=== PATIENT | male | born 1960 | race Caucasian/White ===

== ENCOUNTER → 2019-05-20 | Outpatient (CLI) | payer BC, OTHER ==
[2019-05-20 13:18] LABS: BASOPHILS ABSOLUTE AUTO 0.02 K/mm3 (0.00-0.23); BASOPHILS PERCENT AUTO 0 % (0-2); EOSINOPHILS ABSOLUTE AUTO 0.01 K/mm3 (0.00-0.68); EOSINOPHILS PERCENT AUTO 0 % (0-6); Hematocrit 46.2 % (37.0-53.0); Hemoglobin 15.7 g/dL (13.5-17.5); IMMATURE GRAN ABSOLUTE AUTO 0.03 K/mm3 (0.00-0.10); IMMATURE GRAN PERCENT AUTO 0 % (0-1); LYMPHOCYTES ABSOLUTE AUTO 1.61 K/mm3 (0.84-5.20); LYMPHOCYTES PERCENT AUTO 22 % (21-46); MONOCYTES ABSOLUTE AUTO 0.41 K/mm3 (0.16-1.47); MONOCYTES PERCENT AUTO 6 % (4-13); Mean Corpuscular HGB 30.7 pg (26.0-34.0); Mean Corpuscular Volume 90 fL (80-100); Mean Platelet Volume 9.7 fL (9.1-12.4); NEUTROPHILS ABSOLUTE AUTO 5.15 K/mm3 (1.96-9.15); NEUTROPHILS PERCENT AUTO 71 % (41-73); Platelet Count 232 K/mm3 (150-400); RDW Coefficient Variation 12.8 % (11.7-14.2); RDW Standard Deviation 41.9 fL (35.1-46.3); Red Blood Cell Count 5.12 M/mm3 (4.30-5.90); White Blood Cell Count 7.23 K/mm3 (4.00-11.30)
[2019-05-20 13:30] LABS: Alanine Aminotransfer (ALT/SGP 34 U/L (12-78); Albumin, Blood 4.3 g/dL (3.4-5.0); Albumin/Globulin Ratio 1.3 (0.8-1.8); Alk Phos 54 U/L (40-126); Anion Gap 8 mmol/L (6-16); Aspartate Aminotrans (AST/SGOT 21 U/L (12-37); Bilirubin, Total 0.9 mg/dL (0.1-1.0); Blood Urea Nitrogen 17 mg/dL (8-24); Bun/Creatinine Ratio 14.7 (12.0-20.0); CO2, Blood 29 mmol/L (21-32); Calcium, Blood 9.1 mg/dL (8.5-10.1); Chloride, Blood 104 mmol/L (98-108); Creatinine, Blood 1.16 mg/dL (0.60-1.20); Globulin, Blood 3.2 g/dL (2.2-4.0); Glomerular Filtration Rate >60 (60-); Glucose, Blood 149 mg/dL (70-99); Potassium, Blood 4.1 mmol/L (3.5-5.5); Sodium, Blood 141 mmol/L (136-145); Total Protein, Blood 7.5 g/dL (6.4-8.2)
[2019-05-20 13:40] LABS: Troponin I <0.017 ng/mL (0.000-0.040)
== END | disposition home or self-care (01) ==
LOC: LAB SHORT 13:14 → LAB EV 13:14
PROVIDERS: Physician Assistant Medical
DX: R07.9 Chest pain, unspecified (principal)
CPT/HCPCS: 80053; 83690; 84484; 85025

== ENCOUNTER 2019-08-07 06:57 | Day surgery (SDC) | payer BC, OTHER ==
[~2019-08-07] VITALS: Ht 188 cm; Wt 97.0 kg
[2019-08-07] MEDS ORDERED: SUCR1 PO (07:30)
[2019-08-07] MEDS ORDERED: OMEPRAZOLE20 MG PO (07:30)
[2019-08-07] MEDS ORDERED: ASPI81CH PO (07:32)
[2019-08-07] MEDS ORDERED: ATOR10 PO (07:33)
--- NOTE | 2019-08-07 12:06 | NUR ---
DISCHARGE GONE OVER WITH PT, BOTH PT AND VERBALIZED UNDERSTANDING OF DISCHARGE INSTRUCTIONS. CLOTH DOT PLACED TO RADIAL SITE, NO ACTIVE BLEEDING NOTED. ARM BOARD PLACED RIGHT FOREARM. SALINE LOCK OUT WITH CATHETER INTACT. PT TO PRIVATE VEHICLE PER W/C EITH ASSIST OF 1 STAFF.
== END 2019-08-07 12:33 | disposition home or self-care (01) ==
LOC: MHTC 06:57
PROC: 4A023N7 Measurement of Cardiac Sampling and Pressure, Left Heart, Percutaneous Approach (ICD-10-PCS; principal; 2019-08-07)
PROC: B2111ZZ Fluoroscopy of Multiple Coronary Arteries using Low Osmolar Contrast (ICD-10-PCS; principal; 2019-08-07)
DX: R07.9 Chest pain, unspecified (principal); I10 Essential (primary) hypertension; I25.10 Atherosclerotic heart disease of native coronary artery without angina pectoris; E78.00 Pure hypercholesterolemia, unspecified; E78.5 Hyperlipidemia, unspecified; Z79.82 Long term (current) use of aspirin; Z79.899 Other long term (current) drug therapy; Z87.891 Personal history of nicotine dependence
CPT/HCPCS: 93458; 99152; 99153; C1769; C1894; J1644; J2250; J3010; J7030; Q9967

== ENCOUNTER 2022-08-07 11:07 | Day surgery (SDC) | payer BC, OTHER ==
[~2022-08-07] VITALS: Ht 182.9 cm; Wt 93.1 kg
[~2022-08-07 11:07] MED LIST: ASPI81CH PO; ATOR10 PO; OMEPRAZOLE20 MG PO; SUCR1 PO
[2022-08-07] MEDS ORDERED: TAMS.4ER (11:57)
--- NOTE | 2022-08-07 12:56 | NUR ---
08/07/22 1256 Aleksandr Mayo ROPIVACAINE 0.5% 30 MLS MIXED & VERIFIED W/ EPI 0.15 ML (1MG/ML) PER ORDER TO MAKE ROPIVACAINE 0.5% 1:200,000 FOR INJECTION AT OPSITE BY DR WOLFE. 20 MLS OF LOCAL INJECTED AT OPSITE BY DR WOLFE.
== END 2022-08-07 14:00 | disposition home or self-care (01) ==
LOC: ORSCSDS 11:07
PROVIDERS: Podiatrist Foot & Ankle Surgery
PROC: 0SGP04Z Fusion of Right Toe Phalangeal Joint with Internal Fixation Device, Open Approach (ICD-10-PCS; principal; 2022-08-07 12:30)
DX: M20.41 Other hammer toe(s) (acquired), right foot (principal); M79.671 Pain in right foot; Z87.891 Personal history of nicotine dependence; Z79.899 Other long term (current) drug therapy
CPT/HCPCS: C1713; J0171; J0690; J1100; J2250; J2405; J2704; J2795; J3010

== ENCOUNTER 2022-10-06 10:44 | Day surgery (SDC) | payer BC, OTHER ==
[~2022-10-06] VITALS: Ht 182.9 cm; Wt 92.9 kg
[~2022-10-06 10:44] MED LIST changes: +TAMS.4ER
[2022-10-06] MEDS ORDERED: KERENDIA10 MG (11:01)
== END 2022-10-06 14:15 | disposition home or self-care (01) ==
LOC: ORSCSDS 10:44
PROVIDERS: Internal Medicine Gastroenterology
PROC: 0DBN8ZX Excision of Sigmoid Colon, Via Natural or Artificial Opening Endoscopic, Diagnostic (ICD-10-PCS; principal; 2022-10-06 12:00)
PROC: 0DBP8ZX Excision of Rectum, Via Natural or Artificial Opening Endoscopic, Diagnostic (ICD-10-PCS; principal; 2022-10-06 12:00)
PROC: 0DBK8ZX Excision of Ascending Colon, Via Natural or Artificial Opening Endoscopic, Diagnostic (ICD-10-PCS; principal; 2022-10-06 12:00)
PROC: 0DBM8ZX Excision of Descending Colon, Via Natural or Artificial Opening Endoscopic, Diagnostic (ICD-10-PCS; principal; 2022-10-06 12:00)
PROC: 0DBL8ZX Excision of Transverse Colon, Via Natural or Artificial Opening Endoscopic, Diagnostic (ICD-10-PCS; principal; 2022-10-06 12:00)
DX: Z12.11 Encounter for screening for malignant neoplasm of colon (principal); Z86.010 Personal history of colon polyps; D12.5 Benign neoplasm of sigmoid colon; D12.3 Benign neoplasm of transverse colon; D12.2 Benign neoplasm of ascending colon; D12.4 Benign neoplasm of descending colon; K62.1 Rectal polyp; K64.4 Residual hemorrhoidal skin tags; Z87.891 Personal history of nicotine dependence; G47.33 Obstructive sleep apnea (adult) (pediatric); E78.5 Hyperlipidemia, unspecified; Z79.899 Other long term (current) drug therapy
CPT/HCPCS: 88305; J2704; J7120

== ENCOUNTER 2025-06-25 11:04 | Day surgery (SDC) | payer MEDICARE, BC, OTHER ==
[2025-06-25] VITALS (12 sets, daily range): BP systolic 95–140; BP diastolic 51–81
[~2025-06-25] VITALS: Ht 182.9 cm; Wt 94.9 kg
[~2025-06-25 11:04] MED LIST changes: +BENADRYL25 MG PO; +CeFAZolin Sodium 2,000 MG in NS 100 ML IV SCH; +Chlorhexidine Mouth Care 15 ML UDC MT SCH; +DIPH25; +DULO30; +KERENDIA10 MG; +MAGNESIUM OXID500 MG; +MAGNESIUM PO; +PRAV20; +PRAV20 PO; +Ropivacaine 0.5% HCl/Pf 123.125 MG,EPINEPHrine HCL 0.25 MG,Ketorolac Tromethamine 15 MG... INFIL SCH; +TAMS.4ER PO; +TAMSULOSIN HCL0.4 M1; +TRAZ50 PO; +Tranexamic Acid 100 ML IV SCH; +VITAMIN D325 MC3 PO; +ZOLP5; +ZOLP5 PO
--- NOTE | 2025-06-25 12:11 | NUR ---
Ambulatory in Day Surgery History, Chart, Medications and Allergies reviewed before start of procedure. Pre-Op teaching done. Pt verbalizes understanding. Patient States Post-Procedure ride home has been arranged.
[2025-06-25] MEDS ORDERED: Midazolam HCl 1MG / ML 2ML Vial ONE (12:42)
[2025-06-25] MEDS ORDERED: Albuterol 2.5 MG/3 ML VIAL INH PRN (14:15)
[2025-06-25] MEDS ORDERED: Ondansetron HCl 2 MG / ML 2ML Vial IV PRN ×2 (14:20→14:35)
[2025-06-25] MEDS ORDERED: HYDROmorphone HCl/Pf 1MG SYR IV PRN ×3 (14:20→14:35)
[2025-06-25] MEDS ORDERED: FentaNYL Citrate 50 MCG/ML 2 ML Injection IV PRN ×2 (14:20)
[2025-06-25] MEDS ORDERED: Metoclopramide HCl 5MG / ML 2ML Vial IV PRN (14:35)
[2025-06-25] MEDS ORDERED: Magnesium Hydroxide Conc 10 ML UDC PO PRN (14:35)
[2025-06-25] MEDS ORDERED: FLU VACC TS2025(65UP)/MF59C/PF 45 MCG/0.5 ML SYRINGE IM SCH (14:50)
--- NOTE | 2025-06-25 15:24 | NUR ---
PT TO ROOM 215 FROM PACU. POSTOP VS STARTED AND STABLE. PT ABLE TO WIGGLE TOES, DORISFLEX AND PLANTARFLEX, AND LIFT LEG PARTIALLY OFF OF BED. PT ORIENTED TO ROOM. WILL CONTINUE TO MONITOR.
[2025-06-25] MEDS ORDERED: ASPI81CH PO (15:39)
[2025-06-25] MEDS ORDERED: Ketorolac Tromethamine 15mg Vial IV SCH (18:00)
[2025-06-25] MEDS ORDERED: CeFAZolin Sodium 2,000 MG in NS 100 ML IV SCH (20:45)
[2025-06-26 04:59] VITALS: BP 128/83
[2025-06-26 05:17] LABS: BASOPHILS ABSOLUTE AUTO 0.02 K/mm3 (0.00-0.23); BASOPHILS PERCENT AUTO 0 % (0-2); EOSINOPHILS ABSOLUTE AUTO 0.05 K/mm3 (0.00-0.68); EOSINOPHILS PERCENT AUTO 1 % (0-6); Hematocrit 37.8 % (37.0-53.0); Hemoglobin 12.7 g/dL (13.5-17.5); IMMATURE GRAN ABSOLUTE AUTO 0.02 K/mm3 (0.00-0.10); IMMATURE GRAN PERCENT AUTO 0 % (0-1); LYMPHOCYTES ABSOLUTE AUTO 1.56 K/mm3 (0.84-5.20); LYMPHOCYTES PERCENT AUTO 18 % (21-46); MONOCYTES ABSOLUTE AUTO 0.89 K/mm3 (0.16-1.47); MONOCYTES PERCENT AUTO 10 % (4-13); Mean Corpuscular HGB Conc 33.6 g/dL (31.5-36.5); Mean Corpuscular Volume 91 fL (80-100); NEUTROPHILS ABSOLUTE AUTO 6.28 K/mm3 (1.96-9.15); NEUTROPHILS PERCENT AUTO 71 % (41-73); NRBC ABSOLUTE 0.00 K/mm3 (0.00-0.02); NRBC Auto 0.0 /100 WBC (0.0-0.2); Platelet Count 176 K/mm3 (150-400); RDW Coefficient Variation 12.9 % (11.7-14.2); RDW Standard Deviation 43.0 fL (35.1-46.3)
--- NOTE | 2025-06-26 05:22 | NUR ---
GRADES 9 THROUGH 12 TEACHER SUMMARY PT IS POD 0 FOR L TKA. SPINAL WORE OFF A FEW HOURS INTO SHIFT. PAIN HAS BEEN WELL CONTROLLED WITH SCHEDULED MEDS ALONG WITH OXYCODONE 5MG. DRESSING TO L KNEE C/D/I. PT HAS VOIDED SEVERAL TIMES THROUGH THE NIGHT AND WAS ABLE TO GET OOB AND AMBULATE TO THE BATHROOM USING FWW. PT WAS STABLE WITH AMBULATION AND DID WELL. VSS, WCTM.
[2025-06-26 05:37] LABS: Anion Gap 7.0 mmol/L (3-11); Blood Urea Nitrogen 17.0 mg/dL (8-24); CO2, Blood 30.0 mmol/L (21-32); Calcium, Blood 8.9 mg/dL (8.5-10.1); Chloride, Blood 106.0 mmol/L (98-108); Creatinine, Blood 0.78 mg/dL (0.60-1.20); Glucose, Blood 138.0 mg/dL (70-99); Magnesium, Blood 2.1 mg/dL (1.6-2.4); Potassium, Blood 4.0 mmol/L (3.5-5.5); Sodium, Blood 139.0 mmol/L (136-145)
[2025-06-26 07:33] VITALS: BP 80/47
[2025-06-26 07:35] VITALS: BP 111/70
--- NOTE | 2025-06-26 11:00 | NUR ---
SHIFT SUMMARY AND DISCHARGE PATIENT ALERT AND INTERACTIVE. PATIENT ABLE TO AMBULATE WITH WALKER WITH STAND BY ASSIST. PATINT DISCHARGED TO HOME. DISCHARGE INSRUCTIONS REVIEWED WITH PATIENT. IV REMOVED PRIOR TO DISCHARGE. BELONGINGS SENT HOME WITH PATIENT. ROOM CHECK DONE PRIOR TO DISCHARGE. PATIENT TAKEN OUT VIA WHEELCHAIR.
== END 2025-06-26 11:05 | disposition home or self-care (01) ==
LOC: ORSCMMR 11:04 → SURS 15:07 → ORSCMMR 06-26 11:05 → ORD 07-21 08:15
PROVIDERS: Orthopaedic Surgery
PROC: 0SRD0JA Replacement of Left Knee Joint with Synthetic Substitute, Uncemented, Open Approach (ICD-10-PCS; principal; 2025-06-25 12:30)
DX: M17.12 Unilateral primary osteoarthritis, left knee (principal); G47.33 Obstructive sleep apnea (adult) (pediatric); Z85.51 Personal history of malignant neoplasm of bladder; Z87.891 Personal history of nicotine dependence; E78.5 Hyperlipidemia, unspecified; Z79.899 Other long term (current) drug therapy
CPT/HCPCS: 36415; 73560-LT; 80048; 83735; 85025; 97110; 97161; 97530; A9270; C1713; C1776; J0166; J0690; J0735; J1885; J2250; J2704; J2795; J7120